=== PATIENT | female | born 1950 | race Caucasian/White ===

== ENCOUNTER 2016-07-07 07:09 | Day surgery (SDC) | payer BC ==
--- NOTE | ~2016-07-07 | EGD ---
EGD REPORT [facility] [address] [place] [id number] NAME: JUDIT WORLEY : [birth year] [place]US [place] [facility] [place] [id number] AGE: 66 ADM/REG DATE : 07/07/16 MR#: [id number] REPORT SERV DATE: 07/07/16 DICTATED BY: JOY GIBSON DATE: 07/07/16 REPORT STATUS : Draft TRANSCRIBED BY: [facility] DATE: 07/07/16 Endoscopy Center Patient Name: Judit Worley Date of : 1950 Attending MD: JOY GIBSON MD Procedure Date No Time: 07/07/2016 Procedure: Colonoscopy Indications: Screening for colorectal malignant neoplasm Referring MD: JOSE JUAN ACOSTA Medicines: as per anesthesia Complications: No immediate complications. Procedure: Pre-Anesthesia Assessment: - ASA Grade Assessment: II - A patient with mild systemic disease. After I obtained informed consent, the scope was passed under direct vision. Throughout the procedure, the patient's blood pressure, pulse, and oxygen saturations were monitored continuously. The PCF [id number] was introduced through the anus and advanced to the cecum, identified by appendiceal orifice and ileocecal valve. The colonoscopy was performed without difficulty. The patient tolerated the procedure. The quality of the bowel preparation was adequate to identify polyps. Findings: The perianal and digital rectal examinations were normal. Two sessile polyps were found in the ascending colon. The polyps were 3 to 5 mm in size. These polyps were removed with a cold biopsy forceps. Resection and retrieval were complete. A few small and large-mouthed diverticula were found in the sigmoid colon. Internal hemorrhoids were found during endoscopy and were mild. Impression: - Two 3 to 5 mm polyps in the ascending colon. Resected and retrieved. - Diverticulosis in the sigmoid colon. - Internal hemorrhoids. Recommendation: - Await pathology results. - Repeat colonoscopy for surveillance based on pathology results. Procedure Code(s): --- Professional --- 23419, Colonoscopy, flexible, proximal to splenic flexure; with biopsy, single or multiple EGD REPORT [facility] [address] [id number] NAME: JUDIT WORLEY : [birth year] STATUS : REG [facility]#: [id number] AGE: 66 ADM/REG DATE : 07/07/16 MR#: [id number] REPORT SERV DATE: 07/07/16 DICTATED BY: JOY GIBSON DATE: 07/07/16 REPORT STATUS : Draft TRANSCRIBED BY: [employer] SERVICES DATE: 07/07/16 Diagnosis Code(s): --- Professional --- D12.2, Benign neoplasm of ascending colon K64.8, Other hemorrhoids K57.30, Diverticulosis of large intestine without perforation or abscess without bleeding Z12.11, Encounter for screening for malignant neoplasm of colon CPT copyright 2013 [employer]. All rights reserved. The codes documented in this report are preliminary and upon grain mill worker review may be revised to meet current compliance requirements. JOY GIBSON MD 07/07/2016 9:54 AM This report has been signed electronically. Number of Addenda: 0 Note Initiated On: 07/07/2016 9:22 AM Scope Withdrawal Time 0 hours 6 minutes 9 seconds [id number] [id number]
[~2016-07-07 07:09] MED LIST: ASAB PO; CAT1 PO; DIOV160 PO
== END 2016-07-07 23:59 | disposition home or self-care (01) ==
LOC: DMU 07:09
PROVIDERS: Internal Medicine Gastroenterology
PROC: 0DBK8ZZ Excision of Ascending Colon, Via Natural or Artificial Opening Endoscopic (ICD-10-PCS; principal; 2016-07-07 08:30)
DX: Z12.11 Encounter for screening for malignant neoplasm of colon (principal); D12.2 Benign neoplasm of ascending colon; K64.8 Other hemorrhoids; K57.30 Diverticulosis of large intestine without perforation or abscess without bleeding; I10 Essential (primary) hypertension; E66.9 Obesity, unspecified; Z79.82 Long term (current) use of aspirin; Z79.899 Other long term (current) drug therapy
CPT/HCPCS: 88305